=== PATIENT | female | born 2000 | race Asian ===

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

== ENCOUNTER 2022-02-25 13:45 | Emergency (ER) | payer MEDICAID ==
[~2022-02-25] VITALS: Ht 147.3 cm; Wt 3.6 kg
[2022-02-25 14:22] VITALS: BP 109/66
[2022-02-25] MEDS ORDERED: ACETAMINOPHEN EXTRA STRENGTH 500 MG TAB PO ONE (14:30)
[2022-02-25] MEDS ORDERED: ACETAMINOPHEN 650 MG/20.3 ML UDC PO ONE (14:30)
[2022-02-25] MEDS ORDERED: ACETAMINOPHEN 650 MG/20.3 ML UDC ONE (14:32)
--- NOTE | 2022-02-25 14:40 | NUR ---
C/O FEVER, 9/10 SORE THROAT, CAN'T AWALLOW FOOD, NO APPITITE X 4 DAYS. ORAL TEMP 101.2, P117 AT THIS TIME. PMH: ASTHMA, MIGRAINE
[2022-02-25 15:00] VITALS: BP 115/72
[2022-02-25] MEDS ORDERED: PRED20TA5 PO (15:49)
[2022-02-25] MEDS ORDERED: AZIT250T4 PO (15:49)
--- NOTE | 2022-02-25 15:56 | NUR ---
Patient discharged with v/s stable. Written and verbal after care instructions given and explained. Patient alert, oriented and verbalized understanding of instructions. Ambulatory with steady gait. All questions addressed prior to discharge. ID band removed. Patient advised to follow up with PMD. Rx of AZITHRO, DELTASONE given. Patient educated on indication of medication including possible reaction and side effects. Opportunity to ask questions provided and answered.
== END 2022-02-25 15:56 | disposition home or self-care (01) ==
LOC: MED 13:45
DX: J02.9 Acute pharyngitis, unspecified (principal); R00.0 Tachycardia, unspecified; Z79.899 Other long term (current) drug therapy
CPT/HCPCS: 99283

== ENCOUNTER 2022-11-09 16:25 | Emergency (ER) | payer MEDICAID ==
[~2022-11-09] VITALS: Ht 152.4 cm; Wt 61.2 kg
[~2022-11-09 16:25] MED LIST: AZIT250T4 PO; PRED20TA5 PO
[2022-11-09 16:38] VITALS: BP 130/69
[2022-11-09] MEDS ORDERED: AMOX-999 PO (17:08)
[2022-11-09] MEDS ORDERED: IBUP-1842 PO (17:08)
== END 2022-11-09 17:26 | disposition home or self-care (01) ==
LOC: MED 16:25
DX: M79.631 Pain in right forearm (principal); W55.01XA Bitten by cat, initial encounter; Y93.89 Activity, other specified; Y92.89 Other specified places as the place of occurrence of the external cause; Y99.8 Other external cause status
CPT/HCPCS: 73090; 90471; 90715; 99283

== ENCOUNTER 2024-05-19 22:55 | Emergency (ER) | payer MEDICAID ==
[~2024-05-19] VITALS: Ht 147.3 cm; Wt 59.0 kg
[~2024-05-19 22:55] MED LIST changes: +AMOX-999 PO; +IBUP-1842 PO
[2024-05-19 23:22] VITALS: BP 103/60; PULSE 101; RESP 21; TEMP 98.3; O2SAT 97
[2024-05-20] MEDS ORDERED: ALBU0.0912 INH (01:35)
[2024-05-20] MEDS ORDERED: AMOX1TAB8 PO (01:35)
[2024-05-20 01:41] VITALS: BP 103/60; PULSE 101; RESP 21; TEMP 98.3; O2SAT 97
== END 2024-05-20 01:41 | disposition home or self-care (01) ==
LOC: MED 22:55
DX: J20.9 Acute bronchitis, unspecified (principal); J45.909 Unspecified asthma, uncomplicated; Z79.899 Other long term (current) drug therapy
CPT/HCPCS: 71045; 99283